=== PATIENT | male | born 1965 | race Caucasian/White ===

== ENCOUNTER → 2016-05-30 | Outpatient (CLI) | payer OTHER | PROVIDERS: ATTEND Radiology Radiation Oncology | DX: C09.9 Malignant neoplasm of tonsil, unspecified (principal); R13.10 Dysphagia, unspecified | CPT/HCPCS: 92611-GN ==

== ENCOUNTER → 2016-06-26 | Outpatient (CLI) | payer OTHER | LOC: FIMAGING 15:48 | PROVIDERS: ATTEND Internal Medicine Hematology & Oncology | DX: Z43.1 Encounter for attention to gastrostomy (principal) ==

== ENCOUNTER → 2018-03-25 | Outpatient (CLI) | payer OTHER | LOC: FIMAGING 13:32 | PROVIDERS: ATTEND Otolaryngology | DX: Z85.09 Personal history of malignant neoplasm of other digestive organs (principal) ==